=== PATIENT | female | born 1940 | race Caucasian/White ===

== ENCOUNTER 2016-11-01 08:03 | Observation (INO) ==
--- NOTE | 2016-11-01 08:13 | Emergency Department Note ---
Disposition Clinical Impression: COPD (chronic obstructive pulmonary disease) Qualifiers: COPD type: unspecified COPD Qualified Code(s): J44.9 - Chronic obstructive pulmonary disease, unspecified CHF (congestive heart failure) Qualifiers: Congestive heart failure type: unspecified congestive heart failure type Congestive heart failure chronicity: unspecified congestive heart failure chronicity Qualified Code(s): I50.9 - Heart failure, unspecified Disposition: Admitted As Inpatient Condition: Good Referrals: Mina De Oilveira MD [Primary Care Provider] - Chest Pain HPI - General Time Seen by Provider: 11/01/16 08:05 Source: patient Mode of arrival: EMS Limitations: no limitations Vital Signs Reviewed: Yes Nursing Notes Reviewed: Yes - History of Present Illness HPI Narrative: 75-year-old obese white female presents to emergency department via ambulance complaining of left sided chest pain. She says her pain started last night and continued on this morning. She describes a stabbing pain to her left lower sternum. She denies shortness of breath or nausea. She has never had a problem with her heart before. She does not smoke and does not have diabetes. She says that her father from a heart problem, but she is not sure that he had coronary artery disease or heart attack. She has taken no medicines prior to her arrival. - Related Data Home Medications Medication Instructions Recorded Confirmed Amlodipine [Norvasc] 10 mg PO DAILY 12/26/15 11/01/16 Aspirin [Adult Low Dose Aspirin EC] 81 mg PO DAILY 12/26/15 11/01/16 Budesonide/Formoterol 160/4.5 2 puff IH BID 12/26/15 11/01/16 [Symbicort 160/4.5] Furosemide [Lasix] 40 mg PO QAM 12/26/15 11/01/16 Potassium Chloride [K-Tab ER] 20 meq PO QAM 12/26/15 11/01/16 Pravastatin Sodium 10 mg PO DAILY 12/26/15 11/01/16 Alprazolam [Xanax 0.5 MG Tablet] 0.5 mg PO DAILY 07/29/16 11/01/16 Calcium Carbonate 260 mg PO TID 07/29/16 11/01/16 Fluticasone/Salmeterol [Advair 1 each IH BID 07/29/16 11/01/16 250-50 Diskus] Furosemide [Lasix] 20 mg PO QPM 07/29/16 11/01/16 Gabapentin [Neurontin] 300 mg PO TID 07/29/16 11/01/16 Ipratropium/Albuterol Sulfate 4 gm IH AD 07/29/16 11/01/16 [Combivent Respimat Inhal [place]] Polyethylene Glycol 3350 [MiraLAX] 17 gm PO DAILY 07/29/16 11/01/16 Ranitidine HCl [Zantac] 150 mg PO BID 07/29/16 11/01/16 Previous Rx's Medication Instructions Recorded Nicotine Patch [Nicoderm] 21 mg TD DAILY #30 patch.td24 05/24/16 GuaiFENesin ER [Mucinex] 600 mg PO BID 14 Days 08/05/16 HYDROcodone/Acet 5/325 mg [Kenneth 1 tab PO Q6H PRN 7 Days 08/05/16 5-325 mg] PredniSONE 20 mg PO DAILY #12 tablet 10/17/16 Allergies Allergy/AdvReac Type Severity Reaction Status Date / Time Banana Allergy See Verified 05/21/16 17:39 Comments epinephrine [From Adrenalin] Allergy Swelling Verified 05/21/16 17:39 of Lip/Tongue/Throat grass pollen Allergy See Verified 05/21/16 17:39 Comments Penicillins Allergy Swelling Verified 05/21/16 17:39 of Lip/Tongue/Throat All systems ED: reviewed and negative except as stated. Constitutional: Denies: fever, chills, weakness, weight change Eyes: Denies: eye pain, eye discharge, vision change ENT ED: Denies: ear pain, throat pain, dental pain, hearing loss, epistaxis, congestion, dysphagia Cardiovascular: Reports: as per HPI, chest pain. Denies: palpitations, dyspnea on exertion, orthopnea Respiratory: Denies: cough, dyspnea, wheezes, hemoptysis, stridor Gastrointestinal: Denies: abdominal pain, nausea, vomiting, diarrhea, constipation, hematemesis, melena, hematochezia Genitourinary: Denies: dysuria, frequency, hematuria, discharge Musculoskeletal: Denies: back pain, neck pain, arthralgia, myalgia Integumentary: Denies: rash, abrasion, lesions Neurological: Denies: headache, weakness, numbness, paresthesias, confusion, abnormal gait, vertigo Psychiatric: Denies: anxiety, depression, suicidal thoughts, homicidal thoughts , auditory hallucinations, visual hallucinations Endocrine: Denies: fatigue Hematological/Lymphatic: Denies: easy bleeding, easy bruising Allergic/Immunologic: Denies: facial swelling, urticaria Chest Pain PMH - Past Medical History Medical history: Reports: asthma, COPD, GERD, hyperlipidemia, hypertension, TIA Surgical history: Reports: hysterectomy, orthopedic, other Psychiatric history: Reports: no psych history HEEL SEAM RUBBER history: Reports: no HEEL SEAM RUBBER history - Social History Smoking Status: Current every day smoker Alcohol use: Reports: none Drug use: Reports: none Physical Exam - General Limitations: no limitations General appearance: alert, in no apparent distress - Head Head exam: atraumatic, normocephalic, normal inspection - Eye Eye exam: Present: normal appearance, PERRL, EOMI - ENT ENT exam: normal exam, normal oropharynx, mucous membranes moist - Neck Neck exam: Present: normal inspection, full ROM, trachea midline - Chest Chest inspection: Present: normal inspection, symmetric chest wall rise, tenderness, other (Palpation of her anterior chest wall revealed her chest pain) - Expanded Chest Exam Trauma: Absent: crepitus - Respiratory Respiratory exam: Present: normal lung sounds bilaterally. Absent: respiratory distress - Cardiovascular Cardiovascular exam: Present: regular rate, normal rhythm - Abdominal Exam Abdominal exam: Present: soft, Non-Tender. Absent: tenderness, distention, guarding, rebound, rigidity, organomegaly, pulsatile mass - Extremities Exam Extremities exam: Present: normal inspection, full ROM. Absent: tenderness, pedal edema - Back Exam Back exam: Present: normal inspection, full ROM. Absent: tenderness - Neurological Exam Neurological exam: Present: alert, oriented X3, CN II-XII intact. Absent: motor sensory deficit - Psychiatric Psychiatric exam: Present: normal affect, normal mood - Skin Skin exam: Present: warm, dry, intact, normal color Course Course Narrative: At the time of shift change the patient's final disposition is pending and care of this patient will be turned over to the oncoming physician. - Reevaluation(s) Reevaluation #1: Since Patient from Dr. Byrnes. Patient tells me she has had shortness of breath primarily with exertion and chest discomfort with exertion for 3 days. She describes her pain as a dull ache. She also has chronic lower extremity edema. Records show that she is on Lasix twice a day. She denies a history of CHF however. States she has been using her home nebs 3-4 times a day but symptoms persist. She saw her PCP 4 days ago and states she has 2 days left on a Z-Armin and 8 days left of steroids. She is unsure what her diagnosis was at that time. She is also seen here in the ED on October 17 for a COPD exacerbation and was placed on a course of steroids at that time as well. On my exam she still has some scattered wheezes and crackles at the bases. She has 2+ lower extremity edema. Chest pain is reproducible with palpation. Review of lab work shows no acute abnormalities. Troponin is negative. Chest x -ray however shows some vascular congestion and atelectasis. She wears 2 L of oxygen at home for several months. Oxygen saturations are in the low 90s on 2 liters at this time. Will check BNP. I suspect patient has a component of both CHF and COPD exacerbations at this time and would benefit from admission for IV diuresis and aggressive respiratory treatments. Patient is agreeable to this plan. I spoke to the hospitalist contract technician, Dr. Hahn who has accepted the patient. Time: 09:40 Vital Signs Temperature 98.7 F 11/01/16 08:10 Pulse Rate 90 11/01/16 08:10 Respiratory Rate 20 11/01/16 08:10 Blood Pressure 124/87 11/01/16 08:10 O2 Sat by Pulse Oximetry 90 L 11/01/16 08:10 Temperature 98.7 F 11/01/16 08:10 Pulse Rate 83 11/01/16 08:55 Respiratory Rate 18 11/01/16 08:55 Blood Pressure 131/96 11/01/16 08:55 O2 Sat by Pulse Oximetry 90 L 11/01/16 08:55 Oxygen Delivery Oxygen Delivery Nasal Cannula Chest Pain - Medical Records Medical records reviewed: Yes I reviewed the patient's medical records. - Lab Data Lab results reviewed: Yes I reviewed the patient's lab results. Result diagrams: 11/01/16 08:25 11/01/16 08:25 Lab Results 11/01/16 11/01/16 11/01/16 Range/Units 08:25 08:25 08:25 WBC 11.1 (4.3-11.1) K/mcL RBC 4.24 (3.82-4.97) M/mcL Hgb 12.5 (11.5-15.4) g/dL Hct 39.1 (35.3-44.9) % MCV 92.2 (83.0-100.0) fL MCH 29.5 (28.0-33.3) pg MCHC 32.0 (31.6-35.5) g/dL RDW 13.7 (11.5-14.5) % Plt Count 328 (140-400) K/mcL MPV 9.1 L (9.4-12.4) fL Immature Gran % 1.5 (0-4) % Seg Neutrophils % 69.2 % Lymphocytes % 18.8 % Monocytes % 7.0 % Eosinophils % 3.0 % Basophils % 0.5 % Neutrophils # 7.7 (1.6-8.9) K/mcL Lymphocytes # 2.1 (0.6-4.6) K/mcL Monocytes # 0.8 (0.0-1.3) K/mcL Eosinophils # 0.3 (0.0-0.6) K/mcL Basophils # 0.1 (0.0-0.2) K/mcL PT 11.4 (9.4-12.1) Seconds INR 1.1 Sodium 146 H (136-145) mEq/L Potassium 3.6 (3.5-4.5) mEq/L Chloride 106 (98-109) mEq/L Carbon Dioxide 27 (19-29) mEq/L BUN 20 (7-20) mg/dL Creatinine 0.77 (0.57-1.11) mg/dL Est GFR ( Amer) > 60 (> 60) Est GFR (Non-Af Amer) > 60 (> 60) BUN/Creatinine Ratio 26 (6-26) Glucose 91 (70-99) mg/dL Calculated Osmolality 304 H (280-300) Calcium 9.2 (8.6-10.8) mg/dL Total Bilirubin 0.4 (0.2-1.2) mg/dL AST 10 (5-34) Units/L ALT 7 (0-55) Units/L Alkaline Phosphatase 74 (38-126) Units/L Troponin I (0-0.03) ng/mL Serum Total Protein 6.4 (6.0-8.3) g/dL Albumin 3.3 L (3.5-5.0) g/dL Globulin 3.1 (2.4-3.5) g/dL Albumin/Globulin Ratio 1.1 (1.1-2.2) 11/01/16 Range/Units 08:25 WBC (4.3-11.1) K/mcL RBC (3.82-4.97) M/mcL Hgb (11.5-15.4) g/dL Hct (35.3-44.9) % MCV (83.0-100.0) fL MCH (28.0-33.3) pg MCHC (31.6-35.5) g/dL RDW (11.5-14.5) % Plt Count (140-400) K/mcL MPV (9.4-12.4) fL Immature Gran % (0-4) % Seg Neutrophils % % Lymphocytes % % Monocytes % % Eosinophils % % Basophils % % Neutrophils # (1.6-8.9) K/mcL Lymphocytes # (0.6-4.6) K/mcL Monocytes # (0.0-1.3) K/mcL Eosinophils # (0.0-0.6) K/mcL Basophils # (0.0-0.2) K/mcL PT (9.4-12.1) Seconds INR Sodium (136-145) mEq/L Potassium (3.5-4.5) mEq/L Chloride (98-109) mEq/L Carbon Dioxide (19-29) mEq/L BUN (7-20) mg/dL Creatinine (0.57-1.11) mg/dL Est GFR ( Amer) (> 60) Est GFR (Non-Af Amer) (> 60) BUN/Creatinine Ratio (6-26) Glucose (70-99) mg/dL Calculated Osmolality (280-300) Calcium (8.6-10.8) mg/dL Total Bilirubin (0.2-1.2) mg/dL AST (5-34) Units/L ALT (0-55) Units/L Alkaline Phosphatase (38-126) Units/L Troponin I 0.00 (0-0.03) ng/mL Serum Total Protein (6.0-8.3) g/dL Albumin (3.5-5.0) g/dL Globulin (2.4-3.5) g/dL Albumin/Globulin Ratio (1.1-2.2) - Radiology Data Radiology results reviewed: Yes I reviewed the patient's radiology results. ITS Impressions Chest X-Ray 11/01/16 08:15 IMPRESSION: CHF and bibasilar airspace changes that may represent atelectasis, edema or chronic interstitial change. D/ / Shant Hickman MD / Shant Hickman MD Interpreting Provider: Shant Hickman MD - EKG Data EKG attestation: Yes I reviewed and interpreted this EKG. EKG results narrative: Twelve-lead EKG shows sinus rhythm with a rate of 93, normal axis, no ST elevation or depression appreciated.
[2016-11-01] MEDS ORDERED: Aspirin 325 MG TABLET PO ONE (08:16)
[2016-11-01] MEDS ORDERED: Ondansetron 4 MG/2 ML VIAL IV ONE (08:16)
[2016-11-01] MEDS ORDERED: *HR* Morphine 2 MG/ML SYRINGE IV ONE (08:16)
[2016-11-01 08:44] LABS: Basophils # 0.1 K/mcL (0.0-0.2); Basophils % 0.5 %; Eosinophils # 0.3 K/mcL (0.0-0.6); Hematocrit 39.1 % (35.3-44.9); Hemoglobin 12.5 g/dL (11.5-15.4); Immature Granulocytes % 1.5 % (0-4); Lymphocytes # 2.1 K/mcL (0.6-4.6); Lymphocytes % 18.8 %; Mean Corpuscular Hemoglobin 29.5 pg (28.0-33.3); Mean Corpuscular Volume 92.2 fL (83.0-100.0); Mean Platelet Volume 9.1 fL (9.4-12.4); Monocytes # 0.8 K/mcL (0.0-1.3); Neutrophils # 7.7 K/mcL (1.6-8.9); Platelet Count 328 K/mcL (140-400); Red Blood Count 4.24 M/mcL (3.82-4.97); Red Cell Distribution Width 13.7 % (11.5-14.5); Segmented Neutrophils % 69.2 %
[2016-11-01 08:45] LABS: INR 1.1; Prothrombin Time 11.4 Seconds (9.4-12.1)
[2016-11-01 08:46] LABS: Alanine Aminotransferase 7 Units/L (0-55); Albumin 3.3 g/dL (3.5-5.0); Albumin/Globulin Ratio 1.1 (1.1-2.2); Alkaline Phosphatase 74 Units/L (38-126); Aspartate Amino Transferase 10 Units/L (5-34); BUN/Creatinine Ratio 26 (6-26); Bilirubin,Total 0.4 mg/dL (0.2-1.2); Blood Urea Nitrogen 20 mg/dL (7-20); Calcium 9.2 mg/dL (8.6-10.8); Carbon Dioxide 27 mEq/L (19-29); Chloride 106 mEq/L (98-109); Globulin 3.1 g/dL (2.4-3.5); Glucose 91 mg/dL (70-99); Osmolality,Calculated 304 (280-300); Potassium 3.6 mEq/L (3.5-4.5); Sodium 146 mEq/L (136-145); Total Protein 6.4 g/dL (6.0-8.3); eGFR For African Americans > 60 (> 60); eGFR For Non-African Americans > 60 (> 60)
[2016-11-01] MEDS ORDERED: Furosemide 40 MG/4 ML VIAL IVP ONE (09:33)
[2016-11-01] MEDS ORDERED: Naloxone 0.4 MG/ML INJ IVP PRN ×2 (09:53→10:37)
[2016-11-01] MEDS ORDERED: Ipratropium/Albuterol Neb 3 ML ONE (11:02)
[2016-11-01] MEDS: (Ipratropium/Albuterol Sulfate [Combivent Respimat In) IH SCH (11:10)
--- NOTE | 2016-11-01 11:50 | Internal Med History&Physical ---
Date of Encounter: 11/01/16 Time of Encounter: 11:47 Internal Medicine - H&P: HPI Admitted From: Emergency Dept Plans for Post Hospital Care: Home History of present illness: Ms. Mancera is a 75 year old female Past Med Surg Social Fam HX - Past Medical History Medical history: asthma, COPD, GERD, hyperlipidemia, hypertension, TIA Psychiatric history: no psych history - Past Surgical History Surgical History: knee replacement - Social History Smoking Status: Former smoker Smokeless Tobacco Status: No Alcohol use: none Drug use: none - Family History Father Living Status: Mother Living Status: Internal Medicine - H&P: Meds Amlodipine [Norvasc] 10 mg PO DAILY 12/26/15 [History] Aspirin [Adult Low Dose Aspirin EC] 81 mg PO DAILY 12/26/15 [History] Furosemide [Lasix] 40 mg PO QAM 12/26/15 [History] Potassium Chloride [K-Tab ER] 20 meq PO QAM 12/26/15 [History] Pravastatin Sodium 10 mg PO DAILY 12/26/15 [History] Nicotine Patch [Nicoderm] 21 mg TD DAILY #30 patch.td24 05/24/16 [Rx] Alprazolam [Xanax 0.5 MG Tablet] 0.5 mg PO DAILY 07/29/16 [History] Calcium Carbonate 260 mg PO TID 07/29/16 [History] Furosemide [Lasix] 20 mg PO QPM 07/29/16 [History] Gabapentin [Neurontin] 300 mg PO TID 07/29/16 [History] Ipratropium/Albuterol Sulfate [Combivent Respimat Inhal [place]] 4 gm IH AD [History] Polyethylene Glycol 3350 [MiraLAX] 17 gm PO DAILY 07/29/16 [History] Ranitidine HCl [Zantac] 150 mg PO BID 07/29/16 [History] GuaiFENesin ER [Mucinex] 600 mg PO BID 14 Days 08/05/16 [Rx] HYDROcodone/Acet 5/325 mg [[place] 5-325 mg] 1 tab PO Q6H PRN 7 Days 08/05/16 [Rx] PredniSONE 20 mg PO DAILY #12 tablet 10/17/16 [Rx] Allergies Banana Allergy (Verified 05/21/16 17:39) See Comments epinephrine [From Adrenalin] Allergy (Verified 05/21/16 17:39) Swelling of Lip/Tongue/Throat grass pollen Allergy (Verified 05/21/16 17:39) See Comments Penicillins Allergy (Verified 05/21/16 17:39) Swelling of Lip/Tongue/Throat All Systems PM: A 10-system review of systems was performed and is negative for pertinent findings except as documented above in the HPI. - Constitutional Vitals: Temp Pulse Resp BP Pulse Ox 98.1 F 88 20 131/87 91 L 11/01/16 10:23 11/01/16 10:23 11/01/16 10:23 11/01/16 10:23 11/01/16 10:23 - Head Head exam: Present: atraumatic, normal inspection, normocephalic - Neck Neck exam general surgery: Present: supple, trachea midline. Absent: lymphadenopathy Internal Med - H&P Results - Labs CBC & Chem 7: 11/01/16 08:25 11/01/16 08:25 - VTE Reasons for not Prescribing Prophylaxis: Treatment not Indicated - Low risk for VTE
--- NOTE | 2016-11-01 16:03 | Electrocardiograph Report ---
[address] [address] Test Date: 2016-11-01 Pat Name: Delisa Mancera Department: 2000 Room: 112 Gender: F Metal Furniture Assembler: : 1940 Requested By: Eusebio Byrnes Order Number: [id number] Reading MD: Shea Fenton Measurements Intervals [place] Rate: 93 P: 59 ID: [id number] QRS: -22 QRSD: 100 T: 36 QT: 380 QTc: 430 Interpretive Statements SINUS RHYTHM BORDERLINE LEFT AXIS DEVIATION LOW QRS VOLTAGE IN PRECORDIAL LEADS INCOMPLETE RIGHT BUNDLE BRANCH BLOCK Electronically Signed On 11-01-2016 16:01:36 EST by Shea Fenton
--- NOTE | 2016-11-01 16:06 | ECHO - Doppler Report ---
Echocardiogram Name: Delisa Mancera Date of Study: 11/01/2016 Date: 1940 Ht: 63.0 in Medical Record#: [id number] Age: 75 Wt: 226.0 lb Gender: Female BSA: 2.04 Order #: [id number] Location: [facility] Room #: 112A Reading Physician: Contsantin Coronado DO, MANUEL, CHUCHO CAI Senior Wind Energy Consultant: Pam Galvez RVT, [facility] Ordering Physician: Mina Hahn DO Primary Physician: None Indications: Congestive heart failure Impressions: Technically sub-optimal due to poor echocardiographic windows. LVEF 70%. Normal LV chamber size and function. Mild concentric left ventricular hypertrophy. Mild left ventricular diastolic dysfunction. Atypical septal motion of unclear etiology. Right ventricle was not well visualized. Grossly, it appears normal in function. Mild aortic regurgitation. No evidence of pulmonary hypertension. Left Ventricular Wall Motion: Rest Echo Findings All wall segments showed normal motion. Findings: Study Quality * Technically sub-optimal due to poor echocardiographic windows. ECG Findings * Normal sinus rhythm. Left Ventricle * LVEF 70%. * Normal LV chamber size and function. * Mild concentric left ventricular hypertrophy. * Mild left ventricular diastolic dysfunction. * Atypical septal motion of unclear etiology. Right Ventricle * Right ventricle was not well visualized. Grossly, it appears normal in function. Left Atrium * Grossly, normal left atrial size. Right Atrium * Grossly, normal right atrial size. Aortic Valve * Aortic valve not well visualized. * Grossly, the aortic valve appears sclerotic in some views. * Mild aortic regurgitation. * No aortic stenosis. Mitral Valve * Mildly thickened mitral valve leaflets. * No mitral regurgitation. * No mitral stenosis. Tricuspid Valve * Normal tricuspid valve structure and function. * Trace tricuspid regurgitation. * No evidence of pulmonary hypertension. Pulmonic Valve * Pulmonic valve not well visualized. Aorta * Normally sized aortic root. Pericardium * The pericardium appears normal. IVC * Normal IVC dimensions and inspiratory collapse. Pulmonary Artery * Pulmonary artery not well visualized. History Hypertension Family History of CAD Measurements: BP: 134/ 70 2D Normal Values RVIDd: 2.90 cm <2.7 cm IVSd: 1.20 cm 0.6 - 1.0 cm LVIDd: 4.80 cm 3.7 - 5.6 cm LVPWd: 1.10 cm 0.6 - 1.1 cm LVIDs: 3.60 cm 1.5 - 3.6 cm AO: 2.50 cm < 4.0 cm LA: 3.50 cm 2.0 - 4.0cm %FS: 25.00 cm >25 % LA volume: 20.7 Mitral Valve Dec Time:218.00 msec Peak E:.90 m/sec Peak A:1.21 m/sec E/A Ratio:0.7 Peak E' Lat Bennett:8.19 cm/s Peak E' Med Bennett:7.19 cm/s E/E' Lat Ratio:11 E/E' Med Ratio:12.5 Aortic Valve AI pressure Half-time: 389.00 msec Tricuspid Valve TV Regurg Peak Grad: 26.00mmHg TV Regurg Peak Bennett: 2.56m/sec Updated by Constantin Coronado DO, FACJosé Miguel, TRELL, CHUCHO on 11/01/2016 4:00:28 PM electronically signed on 11/01/2016 4:00:50 PM with status of Final Wall Motion [place]: 1=Normal, 2=Hypokinesis, 3=Akinesis, 4=Dyskinesis, 5=Aneurysmal, 6=Hyperkinetic, X=Not Visualized (Blank)=Missing
[2016-11-01] MEDS: Gabapentin 300 MG CAPSULE PO SCH ×2 (17:31→23:18)
[2016-11-01] MEDS: *HR* HYDROcodone/Acet 5/325 mg TABLET PO PRN (20:23)
[2016-11-01] MEDS ORDERED: NON-FORMULARY MEDICATION 1 EACH EACH (Fluticasone/Salmeterol [Advair 250-50 Diskus] 1 EACH IH SCH (21:00)
[2016-11-01] MEDS: Furosemide 40 MG/4 ML VIAL IVP SCH (23:17)
[2016-11-01] MEDS: Famotidine 20 MG TABLET PO SCH (23:18)
[2016-11-01] MEDS: Budesonide/Formoterol 160/4.5 MDI IH SCH (23:19)
[2016-11-02] MEDS: *HR* HYDROcodone/Acet 5/325 mg TABLET PO PRN ×2 (05:14→13:22)
[2016-11-02 05:51] LABS: Basophils # 0.1 K/mcL (0.0-0.2); Basophils % 0.8 %; Eosinophils # 0.7 K/mcL (0.0-0.6); Eosinophils % 7.3 %; Hematocrit 38.9 % (35.3-44.9); Hemoglobin 12.2 g/dL (11.5-15.4); Immature Granulocytes % 0.8 % (0-4); Lymphocytes # 1.9 K/mcL (0.6-4.6); Lymphocytes % 20.1 %; Mean Corpuscular HGB Conc 31.4 g/dL (31.6-35.5); Mean Corpuscular Hemoglobin 28.9 pg (28.0-33.3); Mean Corpuscular Volume 92.2 fL (83.0-100.0); Mean Platelet Volume 9.2 fL (9.4-12.4); Monocytes # 0.8 K/mcL (0.0-1.3); Monocytes % 8.3 %; Platelet Count 291 K/mcL (140-400); Red Blood Count 4.22 M/mcL (3.82-4.97); Red Cell Distribution Width 13.6 % (11.5-14.5); Segmented Neutrophils % 62.7 %
[2016-11-02 06:06] LABS: BUN/Creatinine Ratio 25 (6-26); Blood Urea Nitrogen 20 mg/dL (7-20); Calcium 8.8 mg/dL (8.6-10.8); Carbon Dioxide 31 mEq/L (19-29); Chloride 101 mEq/L (98-109); Glucose 90 mg/dL (70-99); Osmolality,Calculated 298 (280-300); Potassium 3.6 mEq/L (3.5-4.5); Sodium 143 mEq/L (136-145); eGFR For African Americans > 60 (> 60); eGFR For Non-African Americans > 60 (> 60)
[2016-11-02 07:05] VITALS: BP 112/60
[2016-11-02] MEDS: Furosemide 40 MG/4 ML VIAL IVP SCH (08:32)
[2016-11-02] MEDS: Gabapentin 300 MG CAPSULE PO SCH (08:34)
[2016-11-02] MEDS: Famotidine 20 MG TABLET PO SCH (08:34)
[2016-11-02] MEDS ORDERED: PredniSONE 20 MG TABLET PO SCH (09:00)
[2016-11-02] MEDS ORDERED: Azithromycin 250 MG TABLET PO SCH (09:00)
[2016-11-02] MEDS ORDERED: Aspirin Enteric Coated 81 MG Tablet PO SCH (09:00)
[2016-11-02] MEDS ORDERED: Nicotine 21 MG PATCH.TD24 TD SCH (09:00)
[2016-11-02] MEDS: Budesonide/Formoterol 160/4.5 MDI IH SCH (10:03)
[2016-11-02] MEDS: (Ipratropium/Albuterol Sulfate [Combivent Respimat In) IH SCH (10:04)
--- NOTE | 2016-11-02 13:27 | Discharge Summary ---
Date of Encounter: 11/02/16 Time of Encounter: 13:24 - Discharge Diagnosis (1) COPD (chronic obstructive pulmonary disease) Priority: Primary Status: Acute Qualifiers: COPD type: unspecified COPD Qualified Code(s): J44.9 - Chronic obstructive pulmonary disease, unspecified - Discharge Medications Home Medications: Amlodipine [Norvasc] 10 mg PO DAILY 12/26/15 [History] Aspirin [Adult Low Dose Aspirin EC] 81 mg PO DAILY 12/26/15 [History] Furosemide [Lasix] 40 mg PO QAM 12/26/15 [History] Potassium Chloride [K-Tab ER] 20 meq PO QAM 12/26/15 [History] Pravastatin Sodium 10 mg PO DAILY 12/26/15 [History] Nicotine Patch [Nicoderm] 21 mg TD DAILY #30 patch.td24 05/24/16 [Rx] Alprazolam [Xanax 0.5 MG Tablet] 0.5 mg PO DAILY 07/29/16 [History] Calcium Carbonate 260 mg PO TID 07/29/16 [History] Furosemide [Lasix] 20 mg PO QPM 07/29/16 [History] Gabapentin [Neurontin] 300 mg PO TID 07/29/16 [History] Ipratropium/Albuterol Sulfate [Combivent Respimat Inhal [place]] 4 gm IH AD [History] Polyethylene Glycol 3350 [MiraLAX] 17 gm PO DAILY 07/29/16 [History] Ranitidine HCl [Zantac] 150 mg PO BID 07/29/16 [History] GuaiFENesin ER [Mucinex] 600 mg PO BID 14 Days 08/05/16 [Rx] HYDROcodone/Acet 5/325 mg [[place]ia 5-325 mg] 1 tab PO Q6H PRN 7 Days 08/05/16 [Rx] PredniSONE 20 mg PO DAILY #12 tablet 10/17/16 [Rx] Azithromycin [Zithromax] 250 mg PO DAILY tablet 11/02/16 [Rx] Budesonide/Formoterol 160/4.5 [Symbicort 160/4.5] 2 puff IH BIDR inhaler [Rx] Furosemide [Lasix] 40 mg IVP BID vial 11/02/16 [Rx] Ipratropium/Albuterol Neb [Duoneb] 3 ml .ROUTE .STK-MED inhsol 11/02/16 [Rx] Quetiapine Fumarate [Seroquel] 100 mg PO HS tablet 11/02/16 [Rx] Allergies/Adverse Reactions: Allergies Banana Allergy (Verified 05/21/16 17:39) See Comments epinephrine [From Adrenalin] Allergy (Verified 05/21/16 17:39) Swelling of Lip/Tongue/Throat grass pollen Allergy (Verified 05/21/16 17:39) See Comments Penicillins Allergy (Verified 05/21/16 17:39) Swelling of Lip/Tongue/Throat Procedures/tests Complete & Pending: Procedures Performed prior 72 hours Category Date Time Status EV echocardiogram Routine Y 11/01/16 14:10 Completed Date of admission: 11/01/16 09:53 Primary care physician: Mina De Oliveira MD Anticipated date of discharge: 11/02/16 - Patient Status Disposition: Home, Self-Care Condition: Good Functional capacity at discharge: independent ambulation Overall status at discharge: patient is back to baseline - Discharge Instructions Instructions: Chronic Obstructive Pulmonary Disease (DC) Forms: ED Satisfaction Letter - Diet and Activity Activity: increase activity as tolerated Diet: advance to your usual diet Hospital course: Ms. Mancera is a 75 year old female admitted to the ED 2 days ago for COPD exacerbation. This examination, she feels much better and wants to go home. She has antibiotics, prednisone and inhalers at home. - Time Spent with Patient Total time spent providing and/or coordinating discharge services: - Constitutional Vitals: Temp Pulse Resp BP Pulse Ox 98.8 F 80 18 112/60 92 L 11/02/16 07:03 11/02/16 07:03 11/02/16 07:03 11/02/16 07:03 11/02/16 07:03 General appearance: Present: A&O X 3, pleasant, no acute distress - Respiratory Respiratory exam: Present: CTAB. Absent: accessory muscle use, rales, rhonchi, wheezes - Cardiovascular Cardiovascular exam: Present: RRR, +S1, +S2. Absent: diastolic murmur, gallop, rubs, systolic murmur - GI/Abdominal GI/Abdominal exam: Present: normal bowel sounds, soft, no peritoneal signs. Absent: distended, tenderness - Extremities Exam Extremities exam: Present: warm, radial pulses palpable and symetrical. Absent : calf tenderness, cyanotic, pedal edema - Neurological Exam Neurological exam: Present: CN II-XII intact, oriented X3, no focal deficits. Absent: pronater drift, facial droop, speech deficit - VTE Reasons for not Prescribing Prophylaxis: Treatment not Indicated - Low risk for VTE
== END 2016-11-02 15:29 | disposition home or self-care (01) ==
LOC: EMEROOGRE 08:03 → INPGRE 08:03
PROVIDERS: ADMIT Student in an Organized Health Care Education/Training Program; ATTEND Internal Medicine

== ENCOUNTER 2017-07-21 08:15 | Inpatient (IN) ==
[2017-07-21] MEDS ORDERED: Ipratropium/Albuterol Neb 3 ML IH ONE ×2 (09:24→09:27)
--- NOTE | 2017-07-21 09:40 | Emergency Department Note ---
Disposition Clinical Impression: COPD (chronic obstructive pulmonary disease) Disposition: Admitted As Inpatient Condition: Fair Time of Disposition: 10:26 SOB HPI - General Chief Complaint: ED Shortness of Breath/Dyspnea Stated Complaint: difficulty breathing Time Seen by Provider: 07/21/17 09:13 Source: patient, family ([id number]) Limitations: altered mental status Nursing Notes Reviewed: Yes Vital Signs Reviewed: Yes - History of Present Illness Ms. Mancera was brought to the emergency department today because of difficulty breathing. Per nurse's notes 72% room air. She has been wearing home oxygen at 2 L for several months now. She stopped smoking 8 months ago and has a diagnosis of COPD. She has also had some dementia. Her [id number] accompanies her here to the emergency department today and has not seen her for a week but tells me that she is much more confused than usual. Mr. Mancera is a very poor historian and is not sure about a lot of the questions on review of systems such as history of a fall and possible head trauma with are not she has been coughing fever or chills. She does deny any nausea vomiting diarrhea or chest pain. She has been a bit more short of breath today. She also tells me that she has been more confused lately and fearful that somebody might be trying to get into her apartment. She typically is able to ambulate to toilet however last couple of days because of the fear of being pursued she has not gotten up. Pt Subjective Complaint: shortness of breath - Related Data Home Medications Medication Instructions Recorded Confirmed Aspirin [Adult Low Dose Aspirin EC] 81 mg PO DAILY 12/26/15 07/21/17 Furosemide [Lasix] 40 mg PO QAM 12/26/15 07/21/17 Potassium Chloride [K-Tab ER] 20 meq PO BID 12/26/15 07/21/17 Pravastatin Sodium 10 mg PO DAILY 12/26/15 07/21/17 amLODIPine [Norvasc] 5 mg PO DAILY 12/26/15 07/21/17 Furosemide [Lasix] 20 mg PO QPM 07/29/16 07/21/17 Gabapentin [Neurontin] 300 mg PO TID 07/29/16 07/21/17 Ipratropium/Albuterol Sulfate 4 gm IH QID 07/29/16 07/21/17 [Combivent Respimat Inhal [place]] Polyethylene Glycol 3350 [MiraLAX] 17 gm PO DAILY 07/29/16 07/21/17 Ranitidine HCl [Zantac] 150 mg PO BID 07/29/16 07/21/17 Albuterol Sulfate [Ventolin Hfa] 108 mcg IH Q6HR PRN 07/15/17 07/21/17 Azelastine HCl [Astepro] 205.5 mcg NS BID 07/15/17 07/21/17 Bisacodyl [Woman's Laxative] 5 mg PO DAILY PRN 07/15/17 07/21/17 Buspirone HCl [Buspar] 5 mg PO DAILY 07/15/17 07/21/17 Calcium Carbonate/Vitamin D3 1 each PO TID 07/15/17 07/21/17 [Oyster Shell Calcium-Vit D Tab] Cyanocobalamin (Vitamin B-12) 1,000 mcg PO DAILY 07/15/17 07/21/17 [Vitamin B12] Docusate [Colace] 100 mg PO BID 07/15/17 07/21/17 Escitalopram [Lexapro] 20 mg PO DAILY 07/15/17 07/21/17 Fluticasone/Salmeterol [Advair 1 each IH BID 07/15/17 07/21/17 250-50 Diskus] Fluticasone/Salmeterol [Advair 2 each IH BID 07/15/17 07/21/17 500-50 Diskus] Fluticasone/Vilanterol [Breo 1 each IH DAILY 07/15/17 07/21/17 Ellipta 100-25 Mcg INH] HYDROcodone/Acet 5/325 mg [[place] 1 tab PO Q6H PRN 07/15/17 07/21/17 5-325 mg] Ipratropium/Albuterol Sulfate 4 gm IH QID PRN 07/15/17 07/21/17 [Combivent Respimat Inhal [place]] LORazepam [Ativan] 1 mg PO BID 07/15/17 07/21/17 Loratadine [Allergy Relief] 10 mg PO DAILY 07/15/17 07/21/17 Losartan Potassium [Cozaar] 25 mg PO DAILY 07/15/17 07/21/17 Omeprazole [PriLOSEC] 20 mg PO DAILY 07/15/17 07/21/17 Ondansetron HCl [Zofran] 4 mg PO Q6HR PRN 07/15/17 07/21/17 Quetiapine Fumarate [Seroquel] 50 mg PO HS 07/15/17 07/21/17 Previous Rx's Medication Instructions Recorded Fluconazole [Diflucan] 150 mg PO ONCE #1 tab 07/17/17 Allergies Allergy/AdvReac Type Severity Reaction Status Date / Time Banana Allergy See Verified 01/27/17 18:49 Comments epinephrine [From Adrenalin] Allergy Swelling Verified 01/27/17 18:49 of Lip/Tongue/Throat grass pollen Allergy See Verified 01/27/17 18:49 Comments Penicillins Allergy Swelling Verified 01/27/17 18:49 of Lip/Tongue/Throat Limitations: ROS unobtainable due to patients medical condition Cardiovascular: Denies: chest pain Gastrointestinal: Denies: abdominal pain, nausea, vomiting, diarrhea Genitourinary: Denies: urgency, dysuria, frequency Psychiatric: Reports: other (Confusion as per history of present illness) Past Medical History - Past Medical History Medical history: Reports: asthma, COPD, GERD, hyperlipidemia, hypertension, TIA Surgical history: Reports: knee replacement Psychiatric history: Reports: no psych history RECEPTIONIST NURSE history: Reports: no RECEPTIONIST NURSE history - Social History Smoking Status: Former smoker Smokeless Tobacco Status: No Alcohol use: Reports: none Drug use: Reports: none Physical Exam - General Limitations: no limitations General appearance: alert, in no apparent distress - Head Head exam: atraumatic, normocephalic, other (Negative raccoon eyes negative Haley sign) - Eye Eye exam: Present: normal appearance - ENT ENT exam: normal exam, mucous membranes dry, TM's normal bilaterally - Neck Neck exam: Present: normal inspection. Absent: lymphadenopathy - Chest Chest inspection: Present: normal inspection, symmetric chest wall rise. Absent : tenderness - Respiratory Respiratory exam: Present: wheezes (Inspiratory expiratory wheezes with fair air exchange.). Absent: respiratory distress - Cardiovascular Cardiovascular exam: Present: regular rate, normal rhythm, normal heart sounds. Absent: systolic murmur, diastolic murmur - Abdominal Exam Abdominal exam: Present: soft, Non-Tender - Extremities Exam Extremities exam: Present: pedal edema (Trace ankle edema with mild erythema pretibial. No pain to palpation.) - Neurological Exam Neurological exam: Present: alert, oriented X3 - Psychiatric Psychiatric exam: Present: anxious - Skin Skin exam: Absent: intact (Bilateral intertriginous areas groin macerrated erythematous breakdown of skin) Course Vital Signs Temperature 98.2 F 07/21/17 08:21 Pulse Rate 84 07/21/17 08:21 Respiratory Rate 20 07/21/17 08:21 Blood Pressure 120/65 07/21/17 08:21 O2 Sat by Pulse Oximetry 97 07/21/17 08:21 Temperature 98.2 F 07/21/17 08:21 Pulse Rate 84 07/21/17 08:21 Respiratory Rate 20 07/21/17 08:21 Blood Pressure 120/65 07/21/17 08:21 O2 Sat by Pulse Oximetry 90 07/21/17 10:25 Oxygen Delivery Oxygen Delivery Nasal Cannula Shortness of Breath/Dyspnea - [facility] Narrative Medical decision making narrative: COPD exacerbation. Repeat lung exam after 2 DuoNeb just demonstrated the disappearance of the wheezing. She is oxygenating well. Acute confusion on underlying dementia. It does not appear as though she is safe to discharge home where she lives alone even though she does have supportive family members. I spoke with the covering hospitalist here at [facility] presented the case. He accepted admission. He is able to write orders. Perineal wound. A Gallardo catheter was placed to divert urine away from the wound site. She is known to the wound service here at [facility] and has had one consultation just a few days ago. We will continue treatment here at [facility]. At the time of this dictation she is awake alert and in no visible distress awaiting transfer to the floor. - Medical Records Medical records reviewed: Yes I reviewed the patient's medical records. - Lab Data Lab results reviewed: Yes I reviewed the patient's lab results. Result diagrams: 07/21/17 09:35 07/21/17 09:35 Lab Results 07/21/17 07/21/17 07/21/17 Range/Units 09:35 09:35 09:35 WBC 11.1 (4.3-11.1) K/mcL RBC 3.69 L (3.82-4.97) M/mcL Hgb 11.1 L (11.5-15.4) g/dL Hct 35.6 (35.3-44.9) % MCV 96.5 (83.0-100.0) fL MCH 30.1 (28.0-33.3) pg MCHC 31.2 L (31.6-35.5) g/dL RDW 13.3 (11.5-14.5) % Plt Count 301 (140-400) K/mcL MPV 9.9 (9.4-12.4) fL Immature Gran % 0.5 (0-4) % Seg Neutrophils % 76.6 % Lymphocytes % 10.8 % Monocytes % 6.5 % Eosinophils % 5.0 % Basophils % 0.6 % Neutrophils # 8.5 (1.6-8.9) K/mcL Lymphocytes # 1.2 (0.6-4.6) K/mcL Monocytes # 0.7 (0.0-1.3) K/mcL Eosinophils # 0.6 (0.0-0.6) K/mcL Basophils # 0.1 (0.0-0.2) K/mcL Sodium 143 (136-145) mEq/L Potassium 3.5 (3.5-4.5) mEq/L Chloride 96 L (98-109) mEq/L Carbon Dioxide 36 H (19-29) mEq/L BUN 12 (7-20) mg/dL Creatinine 0.80 (0.57-1.11) mg/dL Est GFR ( Amer) > 60 (> 60) Est GFR (Non-Af Amer) > 60 (> 60) BUN/Creatinine Ratio 15 (6-26) Glucose 110 H (70-99) mg/dL Calculated Osmolality 296 (280-300) Calcium 8.9 (8.6-10.8) mg/dL Phosphorus 2.7 (2.3-4.7) mg/dL Magnesium 2.0 (1.6-2.6) mg/dL Total Bilirubin 0.4 (0.2-1.2) mg/dL AST 13 (5-34) Units/L ALT 12 (0-55) Units/L Alkaline Phosphatase 85 (38-126) Units/L Troponin I (0-0.03) ng/mL B-Natriuretic Peptide (0-100) pg/mL Serum Total Protein 6.4 (6.0-8.3) g/dL Albumin 3.3 L (3.5-5.0) g/dL Globulin 3.1 (2.4-3.5) g/dL Albumin/Globulin Ratio 1.1 (1.1-2.2) 07/21/17 07/21/17 Range/Units 09:35 09:35 WBC (4.3-11.1) K/mcL RBC (3.82-4.97) M/mcL Hgb (11.5-15.4) g/dL Hct (35.3-44.9) % MCV (83.0-100.0) fL MCH (28.0-33.3) pg MCHC (31.6-35.5) g/dL RDW (11.5-14.5) % Plt Count (140-400) K/mcL MPV (9.4-12.4) fL Immature Gran % (0-4) % Seg Neutrophils % % Lymphocytes % % Monocytes % % Eosinophils % % Basophils % % Neutrophils # (1.6-8.9) K/mcL Lymphocytes # (0.6-4.6) K/mcL Monocytes # (0.0-1.3) K/mcL Eosinophils # (0.0-0.6) K/mcL Basophils # (0.0-0.2) K/mcL Sodium (136-145) mEq/L Potassium (3.5-4.5) mEq/L Chloride (98-109) mEq/L Carbon Dioxide (19-29) mEq/L BUN (7-20) mg/dL Creatinine (0.57-1.11) mg/dL Est GFR ( Amer) (> 60) Est GFR (Non-Af Amer) (> 60) BUN/Creatinine Ratio (6-26) Glucose (70-99) mg/dL Calculated Osmolality (280-300) Calcium (8.6-10.8) mg/dL Phosphorus (2.3-4.7) mg/dL Magnesium (1.6-2.6) mg/dL Total Bilirubin (0.2-1.2) mg/dL AST (5-34) Units/L ALT (0-55) Units/L Alkaline Phosphatase (38-126) Units/L Troponin I 0.01 (0-0.03) ng/mL B-Natriuretic Peptide 201 H (0-100) pg/mL Serum Total Protein (6.0-8.3) g/dL Albumin (3.5-5.0) g/dL Globulin (2.4-3.5) g/dL Albumin/Globulin Ratio (1.1-2.2) - Radiology Data Radiology results reviewed: Yes I reviewed the patient's radiology results. - EKG Data EKG attestation: Yes I reviewed and interpreted this EKG. EKG results narrative: EKG as interpreted by me normal sinus rhythm 84 bpm T-wave inversions in lead 3. T-wave flattening in aVF. Left axis deviation. Right bundle branch block. No ST elevations or depressions. No significant changes from May 2017.
[2017-07-21 09:46] LABS: Basophils # 0.1 K/mcL (0.0-0.2); Basophils % 0.6 %; Eosinophils # 0.6 K/mcL (0.0-0.6); Hematocrit 35.6 % (35.3-44.9); Hemoglobin 11.1 g/dL (11.5-15.4); Immature Granulocytes % 0.5 % (0-4); Lymphocytes # 1.2 K/mcL (0.6-4.6); Lymphocytes % 10.8 %; Mean Corpuscular HGB Conc 31.2 g/dL (31.6-35.5); Mean Corpuscular Hemoglobin 30.1 pg (28.0-33.3); Mean Corpuscular Volume 96.5 fL (83.0-100.0); Mean Platelet Volume 9.9 fL (9.4-12.4); Monocytes # 0.7 K/mcL (0.0-1.3); Monocytes % 6.5 %; Neutrophils # 8.5 K/mcL (1.6-8.9); Platelet Count 301 K/mcL (140-400); Red Blood Count 3.69 M/mcL (3.82-4.97); Red Cell Distribution Width 13.3 % (11.5-14.5); Segmented Neutrophils % 76.6 %
[2017-07-21] MEDS ORDERED: 0.9 % Sodium Chloride 500 ML IVC ONE (09:51)
[2017-07-21 09:55] LABS: Phosphorous 2.7 mg/dL (2.3-4.7)
[2017-07-21 09:57] LABS: Alanine Aminotransferase 12 Units/L (0-55); Albumin 3.3 g/dL (3.5-5.0); Albumin/Globulin Ratio 1.1 (1.1-2.2); Alkaline Phosphatase 85 Units/L (38-126); Aspartate Amino Transferase 13 Units/L (5-34); BUN/Creatinine Ratio 15 (6-26); Bilirubin,Total 0.4 mg/dL (0.2-1.2); Blood Urea Nitrogen 12 mg/dL (7-20); Calcium 8.9 mg/dL (8.6-10.8); Carbon Dioxide 36 mEq/L (19-29); Chloride 96 mEq/L (98-109); Globulin 3.1 g/dL (2.4-3.5); Glucose 110 mg/dL (70-99); Osmolality,Calculated 296 (280-300); Potassium 3.5 mEq/L (3.5-4.5); Sodium 143 mEq/L (136-145); Total Protein 6.4 g/dL (6.0-8.3); eGFR For African Americans > 60 (> 60); eGFR For Non-African Americans > 60 (> 60)
--- NOTE | 2017-07-21 15:14 | Electrocardiograph Report ---
[place] [id number] Test Date: 2017-07-21 Pat Name: Delisa Mancera Department: 2000 Room: 116 Gender: F Railroad Operating Engineer: : [id number] Requested By: Jermain Correia Order Number: [id number] Reading MD: Deonte Oh MD Measurements Intervals [place] Rate: 84 P: 63 MD: 161 QRS: -35 QRSD: 102 T: -4 QT: 408 QTc: 449 Interpretive Statements SINUS RHYTHM MARKED LEFT AXIS DEVIATION INCOMPLETE RIGHT BUNDLE BRANCH BLOCK Electronically Signed On 07-21-2017 15:13:18 EST by Deonte Oh MD
--- NOTE | 2017-07-21 15:32 | Internal Med History&Physical ---
Date of Encounter: 07/22/17 Time of Encounter: 15:30 Assessment and Plan (1) COPD (chronic obstructive pulmonary disease) Current visit: Yes Status: Acute Patient has recently quit smoking and has breathing difficulties and is on O2 now her sats were very low this morning Qualifiers: Qualified Code(s): J43.9 - Emphysema, unspecified (2) Acute and chronic respiratory failure with hypoxia Current visit: No Status: Acute By history she does decompensate and has desaturations. (3) Acute exacerbation of chronic obstructive airways disease Current visit: No Status: Acute He has acute and chronic exacerbation (4) Acute metabolic encephalopathy Current visit: No Status: Acute Family reports she does have mild dementia but it is much worse and she is confabulating right now (5) Altered mental status Current visit: No Status: Acute Patient had an increase in her confusion according to her family Qualifiers: Altered mental status type: unspecified Qualified Code(s): R41.82 - Altered mental status, unspecified (6) Candidal intertrigo Current visit: No Status: Acute This is due to sitting in wet urine and not being change properly Dry wound cares on the case (7) Dermatitis associated with incontinence Current visit: No Status: Acute She has been sitting apparently in wet pull-ups. Skin is broken down and she is already seeing wound care and continue the treatment here. They placed a Gallardo and I am sending a specimen for UA. As she was being treated with Cipro for previous possible UTI. We will follow along. Internal Medicine - H&P: HPI Chief complaint: Patient was brought into the emergency room by her family because she was m Admitted From: Emergency Dept Plans for Post Hospital Care: Home History of present illness: Ms. Mancera is a 76 year old female Apparently the family says the last couple days her dementias gotten worse she has had to see wound care for skin breakdown on her bottom and was more short of breath. Apparently in the emergency room her sats were very low Past Med Surg Social Fam HX - Past Medical History Medical history: asthma, COPD, dementia, GERD, hyperlipidemia, hypertension, TIA Psychiatric history: no psych history - Past Surgical History Surgical History: knee replacement - Social History Smoking Status: Former smoker Smokeless Tobacco Status: No Alcohol use: none Drug use: none - Family History Father Living Status: Mother Living Status: Internal Medicine - H&P: Meds Aspirin [Adult Low Dose Aspirin EC] 81 mg PO DAILY 12/26/15 [History] Potassium Chloride [K-Tab ER] 20 meq PO BID 12/26/15 [History] Pravastatin Sodium 10 mg PO DAILY 12/26/15 [History] Gabapentin [Neurontin] 300 mg PO BID 07/29/16 [History] Ranitidine HCl [Zantac] 150 mg PO BID 07/29/16 [History] Buspirone HCl [Buspar] 15 mg PO TID 07/15/17 [History] Escitalopram [Lexapro] 20 mg PO DAILY 07/15/17 [History] HYDROcodone/Acet 5/325 mg [[place] 5-325 mg] 1 tab PO Q6H PRN 07/15/17 [History] LORazepam [Ativan] 1 mg PO BID 07/15/17 [History] Loratadine [Allergy Relief] 10 mg PO DAILY 07/15/17 [History] Losartan Potassium [Cozaar] 25 mg PO DAILY 07/15/17 [History] Omeprazole [PriLOSEC] 20 mg PO DAILY 07/15/17 [History] Quetiapine Fumarate [Seroquel] 50 mg PO HS 07/15/17 [History] Ciprofloxacin [Cipro] 500 mg PO BID 07/21/17 [History] Fluticasone/Salmeterol [Advair 250-50 Diskus] 1 each IH BID 07/21/17 [History] Furosemide [Lasix] 40 mg PO HS 07/21/17 [History] Furosemide [Lasix] 80 mg PO 0900 07/21/17 [History] Gabapentin [Neurontin] 600 mg PO HS 07/21/17 [History] Ipratropium/Albuterol Sulfate [Combivent Respimat Inhal [place]] 4 gm IH QID PRN 07/21/17 [History] Memantine HCl 5 mg PO BID 07/21/17 [History] Metoprolol [Lopressor] 12.5 mg PO BID 07/21/17 [History] traZODone [TraZODone] 100 mg PO HS 07/21/17 [History] 3 Allergy/AdvReac Type Severity Reaction Status Date / Time Banana Allergy See Verified 07/21/17 12:24 Comments epinephrine [From Adrenalin] Allergy Swelling Verified 07/21/17 12:24 of Lip/Tongue/Throat grass pollen Allergy See Verified 07/21/17 12:24 Comments Penicillins Allergy Swelling Verified 07/21/17 12:24 of Lip/Tongue/Throat All Systems PM: A 10-system review of systems was performed and is negative for pertinent findings except as documented above in the HPI. - Constitutional Constitutional: no anorexia, no excessive sweating, no fatigue, no fever(s), no falls, no lethargy, no malaise, no night sweats, no weakness, no weight gain, no weight loss - EENT Eyes: no blurry vision, no change in vision, no decreased night vision, no diplopia, no discharge, no dry eye, no floaters, no irritation, no itchy eyes, no loss of peripheral vision, no loss of vision, no pain, no photophobia, no tunnel vision, no other visual disturbances Ears: no ear discharge, no tinnitus Nose, mouth and throat: no facial pain, no hoarseness, no nose pain - Breasts Breasts: no change in shape, no mass, no pain, no nipple discharge, no skin changes, no swelling, no other - Cardiovascular Cardiovascular ROS IM: dyspnea on exertion, edema, no chest pain, no claudication, no diaphoresis, no dyspnea, no irregular heart rhythm, no lightheadedness, no orthopnea, no palpitations, no paroxysmal nocturnal dyspnea , no syncope - Respiratory Respiratory: dyspnea on exertion, no cough, no wheezing, no snoring, no stridor , no pain on inspiration, no chest congestion, no excessive phlegm production, no change in phlegm color, no pain with cough - Gastrointestinal Gastrointestinal: no abdominal pain, no belching, no bloating, no change in bowel habits, no change in stool character, no coffee ground emesis, no constipation, no cramping, no diarrhea, no dyspepsia, no excessive flatus, no fecal incontinence, no heartburn, no hematemesis, no hematochezia, no loose stools, no melena, no nausea, no odynophagia, no tenesmus, no vomiting - Genitourinary Additional comments: N/A Additional comments: N/A - Musculoskeletal Musculoskeletal ROS IM: no arthralgias, no atrophy, no back pain, no deformity, no joint swelling, no limited range of motion, no muscle cramps, no muscle weakness, no myalgias, no neck pain, no numbness, no stiffness, no tingling - Integumentary Integumentary IM: erythema, new lesions, rash, skin ulcer, no unusual bruising, no jaundice - Neurological Neurological ROS: confusion, memory loss, no abnormal gait, no abnormal hearing , no abnormal movements, no abnormal speech, no behavioral changes, no burning sensations, no convulsions, no disequilibrium, no dizziness, no focal weakness, no frequent falls, no headache(s), no lack of coordination, no loss of vision, no numbness, no paresthesias, no radicular pain, no restless legs, no tingling, no tremor(s), no vertigo, no weakness, no other visual disturbances - Psychiatric Psychiatric: abnormal sleep pattern, anxiety, auditory hallucinations, behavioral changes, confusion, difficulty concentrating, hallucinations, paranoia, visual hallucinations, no depression, no mood swings, no panic attacks - Endocrine Endocrine IM: no cold intolerance, no deeping of the voice, no excessive sweating, no fatigue, no flushing, no heat intolerance, no polydipsia, no polyphagia, no polyuria - Allergic/Immunologic Allergic/Immunologic: no tongue swelling, no throat swelling, no itchy eyes, no seasonal rhinorrhea, no uticaria, no wheezing, no GI upset with certain foods, no lip swelling - Constitutional Vitals: Temp Pulse Resp BP Pulse Ox 97.9 F 94 18 132/71 90 07/21/17 13:40 07/21/17 13:40 07/21/17 13:40 07/21/17 13:40 07/21/17 13:40 - Head Head exam: Present: atraumatic, normal inspection, normocephalic - Neck Neck exam general surgery: Present: supple, trachea midline. Absent: lymphadenopathy - Respiratory Respiratory exam: Present: decreased breath sounds, CTAB, prolonged expiratory phase. Absent: accessory muscle use, rales, rhonchi, wheezes Additional comments: Minimal wheezing but she is moving air better color is good her sats are in the 90s and she is wearing O2. She did take it off earlier stating that the oxygen makes her short of breath. And we have talked with her encouraged her to please leave her on her nasal cannula - Cardiovascular Cardiovascular exam: Present: RRR, +S1, +S2. Absent: diastolic murmur, gallop, rubs, systolic murmur - GI/Abdominal GI/Abdominal exam: Present: normal bowel sounds, soft, no peritoneal signs. Absent: distended, tenderness Internal Med - H&P Results - Labs CBC & Chem 7: 07/21/17 09:35 07/21/17 09:35 Labs: Lab appears stable
[2017-07-21 15:33] LABS: Thyroid Stimulating Hormone 0.669 mcIU/mL (0.350-4.840)
[2017-07-21] MEDS ORDERED: Ipratropium/Albuterol Neb 3 ML IH PRN (17:00)
[2017-07-21] MEDS ORDERED: Enoxaparin Weight Dosing SQ SCH (18:00)
[2017-07-21] MEDS: Gabapentin 300 MG CAPSULE PO SCH ×2 (18:08→21:43)
[2017-07-21] MEDS: traZODone 50 MG TABLET PO SCH (21:44)
[2017-07-21] MEDS: Furosemide 40 MG TABLET PO SCH (21:47)
[2017-07-21] MEDS: Budesonide/Formoterol 80/4.5 MDI IH SCH (22:49)
[2017-07-22] MEDS: *HR* Enoxaparin 40 MG/0.4 ML SYRINGE SQ SCH (06:08)
[2017-07-22] MEDS: *HR* HYDROcodone/Acet 5/325 mg TABLET PO PRN ×2 (06:14→11:54)
[2017-07-22] MEDS: Furosemide 40 MG TABLET PO SCH ×2 (09:16→23:29)
[2017-07-22] MEDS: Aspirin Enteric Coated 81 MG Tablet PO SCH (09:16)
[2017-07-22] MEDS: Gabapentin 300 MG CAPSULE PO SCH ×3 (09:16→23:30)
[2017-07-22] MEDS: Budesonide/Formoterol 80/4.5 MDI IH SCH ×2 (09:22→23:30)
[2017-07-22 09:23] LABS: Bilirubin,Urine Small (Negative); Blood,Urine Moderate (Negative); Clarity,Urine Clear (Clear); Color,Urine Yellow (Yellow); Glucose,Urine (UA) Normal (Normal); Ketones,Urine Negative (Negative); Leukocyte Esterase,Urine Negative (Negative); Nitrite,Urine Negative (Negative); Protein,Urine 30 mg/dL (Neg-Trace); Specific Gravity,Urine 1.025 (1.010-1.025); Urobilinogen,Urine Normal (Normal)
[2017-07-22 10:07] LABS: Squamous Epithelial Cell,Urine Few per lpf (None-Few)
[2017-07-22 10:08] LABS: Bacteria,Urine Moderate per hpf (None-Few); Hyaline Casts,Urine Moderate per lpf (None-Few); Mucus,Urine Few (Few)
[2017-07-22] MEDS ORDERED: Acetaminophen 325 MG TABLET PO PRN (13:19)
--- NOTE | 2017-07-22 15:36 | Internal Med Progress Note ---
Date of Encounter: 07/22/17 Time of Encounter: 15:34 - Assessment and plan (1) COPD (chronic obstructive pulmonary disease) Current Visit: Yes Status: Acute Assessment and plan: COPD seems settled down. No wheezing today breathing easily and tolerating her nasal cannula. Qualifiers: Qualified Code(s): J43.9 - Emphysema, unspecified (2) Acute and chronic respiratory failure with hypoxia Current Visit: No Status: Acute Assessment and plan: Not currently a problem (3) Acute exacerbation of chronic obstructive airways disease Current Visit: No Status: Acute Assessment and plan: I think were with exacerbation (4) Acute metabolic encephalopathy Current Visit: No Status: Acute Assessment and plan: Even this seems improved (5) Altered mental status Current Visit: No Status: Acute Assessment and plan: Patient does have mild dementia but seems back to baseline at this point Qualifiers: Altered mental status type: unspecified Qualified Code(s): R41.82 - Altered mental status, unspecified (6) Candidal intertrigo Current Visit: No Status: Acute Assessment and plan: Skin issues are still being addressed the wound care still seeing her for her bottom (7) Dermatitis associated with incontinence Current Visit: No Status: Acute Assessment and plan: Again were following this with wound care keep it dry and leave the Gallardo in for couple days - Time Spent With Patient less than 15 minutes - Subjective Interval history: smiling, resting easily. - Constitutional Vitals: Temp Pulse Resp BP Pulse Ox 98.6 F 73 18 100/65 93 07/22/17 11:45 07/22/17 11:45 07/22/17 11:45 07/22/17 11:45 07/22/17 11:45 - Head Head exam: Present: atraumatic, normocephalic - Neck Neck exam general surgery: Present: supple, trachea midline. Absent: lymphadenopathy - Respiratory Respiratory exam: Present: decreased breath sounds, CTAB, prolonged expiratory phase. Absent: accessory muscle use, rales, rhonchi, wheezes Additional comments: All wheezes have responded to therapy and are absent - Cardiovascular Cardiovascular exam: Present: RRR, +S1, +S2. Absent: diastolic murmur, gallop, rubs, systolic murmur Internal Medicine: Result - Labs CBC & Chem 7: 07/21/17 09:35 07/21/17 09:35 Labs: Urine 07/22/17 Range/Units 09:10 Urine Color Yellow (Yellow) Urine Clarity Clear (Clear) Urine pH 6.0 (5.0-8.0) pH Units Ur Specific [place] 1.025 (1.010-1.025) Urine Protein 30 H (Neg-Trace) mg/dL Urine Glucose (UA) Normal (Normal) mg/dL Labs stable . Consult Discharge Plan - Plan Referrals: Galina Zavala CNP [Primary Care Provider] -
[2017-07-22] MEDS: Mag Hydrox/Al Hydrox/Simeth 30 ML UDC PO PRN (18:58)
[2017-07-22] MEDS: traZODone 50 MG TABLET PO SCH (23:30)
[2017-07-23] MEDS: Mag Hydrox/Al Hydrox/Simeth 30 ML UDC PO PRN (00:38)
[2017-07-23] MEDS: *HR* Enoxaparin 40 MG/0.4 ML SYRINGE SQ SCH (06:22)
[2017-07-23] MEDS: *HR* HYDROcodone/Acet 5/325 mg TABLET PO PRN ×3 (06:23→17:01)
[2017-07-23] MEDS: Aspirin Enteric Coated 81 MG Tablet PO SCH (08:43)
[2017-07-23] MEDS: Furosemide 40 MG TABLET PO SCH ×2 (08:43→21:02)
[2017-07-23] MEDS: Gabapentin 300 MG CAPSULE PO SCH ×3 (08:44→20:58)
[2017-07-23] MEDS: Budesonide/Formoterol 80/4.5 MDI IH SCH ×2 (09:18→21:14)
[2017-07-23] MEDS: traZODone 50 MG TABLET PO SCH (20:59)
[2017-07-24] MEDS: *HR* HYDROcodone/Acet 5/325 mg TABLET PO PRN ×4 (06:22→22:16)
[2017-07-24] MEDS: *HR* Enoxaparin 40 MG/0.4 ML SYRINGE SQ SCH (06:24)
[2017-07-24] MEDS: Aspirin Enteric Coated 81 MG Tablet PO SCH (08:01)
[2017-07-24] MEDS: Furosemide 40 MG TABLET PO SCH ×2 (08:01→22:09)
[2017-07-24] MEDS: Gabapentin 300 MG CAPSULE PO SCH ×3 (08:02→22:10)
[2017-07-24] MEDS: Budesonide/Formoterol 80/4.5 MDI IH SCH ×2 (10:58→22:20)
--- NOTE | 2017-07-24 13:31 | Discharge Summary ---
Date of Encounter: 07/24/17 Time of Encounter: 13:29 - Discharge Diagnosis (1) COPD (chronic obstructive pulmonary disease) Priority: Primary Status: Acute Qualifiers: Qualified Code(s): J43.9 - Emphysema, unspecified (2) Acute and chronic respiratory failure with hypoxia Priority: Primary Status: Acute (3) Acute exacerbation of chronic obstructive airways disease Priority: Primary Status: Acute (4) Acute metabolic encephalopathy Priority: Secondary Status: Acute (5) Altered mental status Priority: Secondary Status: Acute Qualifiers: Altered mental status type: unspecified Qualified Code(s): R41.82 - Altered mental status, unspecified (6) Candidal intertrigo Priority: Primary Status: Acute (7) Dermatitis associated with incontinence Priority: Primary Status: Acute - Discharge Medications Home Medications: Aspirin [Adult Low Dose Aspirin EC] 81 mg PO DAILY 12/26/15 [History] Potassium Chloride [K-Tab ER] 20 meq PO BID 12/26/15 [History] Pravastatin Sodium 10 mg PO DAILY 12/26/15 [History] Gabapentin [Neurontin] 300 mg PO BID 07/29/16 [History] Ranitidine HCl [Zantac] 150 mg PO BID 07/29/16 [History] Buspirone HCl [Buspar] 15 mg PO TID 07/15/17 [History] Escitalopram [Lexapro] 20 mg PO DAILY 07/15/17 [History] HYDROcodone/Acet 5/325 mg [[place] 5-325 mg] 1 tab PO Q6H PRN 07/15/17 [History] LORazepam [Ativan] 1 mg PO BID 07/15/17 [History] Loratadine [Allergy Relief] 10 mg PO DAILY 07/15/17 [History] Losartan Potassium [Cozaar] 25 mg PO DAILY 07/15/17 [History] Omeprazole [PriLOSEC] 20 mg PO DAILY 07/15/17 [History] Quetiapine Fumarate [Seroquel] 50 mg PO HS 07/15/17 [History] Ciprofloxacin [Cipro] 500 mg PO BID 07/21/17 [History] Fluticasone/Salmeterol [Advair 250-50 Diskus] 1 each IH BID 07/21/17 [History] Furosemide [Lasix] 40 mg PO HS 07/21/17 [History] Furosemide [Lasix] 80 mg PO 0900 07/21/17 [History] Gabapentin [Neurontin] 600 mg PO HS 07/21/17 [History] Ipratropium/Albuterol Sulfate [Combivent Respimat Inhal [place]] 4 gm IH QID PRN 07/21/17 [History] Memantine HCl 5 mg PO BID 07/21/17 [History] Metoprolol [Lopressor] 12.5 mg PO BID 07/21/17 [History] traZODone [TraZODone] 100 mg PO HS 07/21/17 [History] Allergies/Adverse Reactions: 3 Allergy/AdvReac Type Severity Reaction Status Date / Time Banana Allergy See Verified 07/21/17 12:24 Comments epinephrine [From Adrenalin] Allergy Swelling Verified 07/21/17 12:24 of Lip/Tongue/Throat grass pollen Allergy See Verified 07/21/17 12:24 Comments Penicillins Allergy Swelling Verified 07/21/17 12:24 of Lip/Tongue/Throat Date of admission: 07/22/17 13:22 Primary care physician: Galina Zavala CNP Discharging clinician: Mina Hahn Anticipated date of discharge: 07/24/17 - Patient Status Disposition: Home Health Service Condition: Fair Functional capacity at discharge: bed bound Overall status at discharge: patient is not back to baseline - Discharge Instructions Follow Up With: Galina Zavala CNP [Primary Care Provider] - - Diet and Activity Activity: as per physical therapy Diet: diabetic diet Interval History: Ms. Mancera was admitted from the emergency room due to some encephalopathy. Low oxygen saturations wheezing shortness of breath. And she also had some skin break down the buttocks from sitting in wet diapers and urine. Hospital course: Ms. Mancera is a 76 year old female Patient was brought to the floor where a Gallardo was placed she had aggressive treatment of her pulmonary congestion is resolved. Buttock skin his much improved from the leave the Gallardo for several days so she can stay dry - Time Spent with Patient Total time spent providing and/or coordinating discharge services: Less than 30 minutes - Constitutional Vitals: Temp Pulse Resp BP Pulse Ox 98.6 F 73 20 96/60 92 07/24/17 11:39 07/24/17 11:39 07/24/17 11:39 07/24/17 11:39 07/24/17 11:39 - Head Head exam: Present: atraumatic, normal inspection, normocephalic - Neck Neck exam general surgery: Present: supple, trachea midline. Absent: lymphadenopathy - Respiratory Respiratory exam: Present: decreased breath sounds, CTAB, prolonged expiratory phase. Absent: accessory muscle use, rales, rhonchi, wheezes - Cardiovascular Cardiovascular exam: Present: RRR, +S1, +S2. Absent: diastolic murmur, gallop, rubs, systolic murmur - GI/Abdominal GI/Abdominal exam: Present: normal bowel sounds, soft, no peritoneal signs. Absent: distended, tenderness
--- NOTE | 2017-07-24 13:35 | Physician Discharge Referral ---
Home Health/Hosp Referral Info Transfer to: Home Health Provider in Charge Post Discharge: PCP - Diagnosis (1) COPD (chronic obstructive pulmonary disease) Status: Acute (2) Acute and chronic respiratory failure with hypoxia Priority: Primary Status: Acute (3) Acute exacerbation of chronic obstructive airways disease Priority: Primary Status: Acute (4) Acute metabolic encephalopathy Priority: Primary Status: Acute (5) Altered mental status Priority: Secondary Status: Acute (6) Candidal intertrigo Priority: Secondary Status: Acute (7) Dermatitis associated with incontinence Priority: Primary Status: Acute - Respiratory Orders Oxygen / L per min Smoking Cessation: Smoking cessation has been advised. For more information, call the [place] Tobacco Quit Line at 3-154-XFKQ-NOW. - Dressing/Wound Care Site: I will get checked the bodyaches once a week please - Diet/Nutrition Diet/Nutrition Orders: No Concentrated Sweets - Activity Activity Orders: Bedrest - Services Needed Following services are medically necessary services: Nursing, Physical Therapy Home Care Orders: DC the [facility] in 5 days - Transfer Medications Home Medications: Aspirin [Adult Low Dose Aspirin EC] 81 mg PO DAILY 12/26/15 [History] Potassium Chloride [K-Tab ER] 20 meq PO BID 12/26/15 [History] Pravastatin Sodium 10 mg PO DAILY 12/26/15 [History] Gabapentin [Neurontin] 300 mg PO BID 07/29/16 [History] Ranitidine HCl [Zantac] 150 mg PO BID 07/29/16 [History] Buspirone HCl [Buspar] 15 mg PO TID 07/15/17 [History] Escitalopram [Lexapro] 20 mg PO DAILY 07/15/17 [History] HYDROcodone/Acet 5/325 mg [[place] 5-325 mg] 1 tab PO Q6H PRN 07/15/17 [History] LORazepam [Ativan] 1 mg PO BID 07/15/17 [History] Loratadine [Allergy Relief] 10 mg PO DAILY 07/15/17 [History] Losartan Potassium [Cozaar] 25 mg PO DAILY 07/15/17 [History] Omeprazole [PriLOSEC] 20 mg PO DAILY 07/15/17 [History] Quetiapine Fumarate [Seroquel] 50 mg PO HS 07/15/17 [History] Ciprofloxacin [Cipro] 500 mg PO BID 07/21/17 [History] Fluticasone/Salmeterol [Advair 250-50 Diskus] 1 each IH BID 07/21/17 [History] Furosemide [Lasix] 40 mg PO HS 07/21/17 [History] Furosemide [Lasix] 80 mg PO 0900 07/21/17 [History] Gabapentin [Neurontin] 600 mg PO HS 07/21/17 [History] Ipratropium/Albuterol Sulfate [Combivent Respimat Inhal [place]] 4 gm IH QID PRN 07/21/17 [History] Memantine HCl 5 mg PO BID 07/21/17 [History] Metoprolol [Lopressor] 12.5 mg PO BID 07/21/17 [History] traZODone [TraZODone] 100 mg PO HS 07/21/17 [History] Allergies/Adverse Reactions: 3 Allergy/AdvReac Type Severity Reaction Status Date / Time Banana Allergy See Verified 07/21/17 12:24 Comments epinephrine [From Adrenalin] Allergy Swelling Verified 07/21/17 12:24 of Lip/Tongue/Throat grass pollen Allergy See Verified 07/21/17 12:24 Comments Penicillins Allergy Swelling Verified 07/21/17 12:24 of Lip/Tongue/Throat Certification: Further, I certify that my clinical findings support that this patient is homebound (i.e. absences from home require considerable and taxing effort and are for medical reasons or sikh services or infrequently or short duration when for other reasons) because: Homebound Reason: Patient requires assistance of a person or device to safely leave home Attestation: My signature below is to certify that this patient is under my care and that I, or nurse practitioner, or a physician's electrician's assistant working with me, has a face-to -face encounter with this patient.
[2017-07-24] MEDS ORDERED: FLUARIX QUAD 2017-18 36MOS UP/PF 0.5 ML SYRINGE IM ONE (15:01)
[2017-07-24] MEDS: traZODone 50 MG TABLET PO SCH (22:11)
[2017-07-25] MEDS: *HR* Enoxaparin 40 MG/0.4 ML SYRINGE SQ SCH (05:37)
[2017-07-25] MEDS: *HR* HYDROcodone/Acet 5/325 mg TABLET PO PRN ×2 (05:42→16:12)
[2017-07-25] MEDS: Furosemide 40 MG TABLET PO SCH (09:36)
[2017-07-25] MEDS: Gabapentin 300 MG CAPSULE PO SCH ×2 (09:38→16:12)
[2017-07-25] MEDS: Budesonide/Formoterol 80/4.5 MDI IH SCH (09:38)
[2017-07-25] MEDS: Aspirin Enteric Coated 81 MG Tablet PO SCH (09:38)
--- NOTE | 2017-07-25 11:24 | Physician Discharge Referral ---
ExtendedCare Referral Info Transfer To: [facility] Provider in Charge after Transfer: PCP Institutional Level of Care: Skilled - Diagnosis (1) COPD (chronic obstructive pulmonary disease) Priority: Primary Status: Acute (2) Acute and chronic respiratory failure with hypoxia Priority: Primary Status: Acute (3) Acute exacerbation of chronic obstructive airways disease Priority: Primary Status: Acute (4) Acute metabolic encephalopathy Priority: Primary Status: Acute (5) Altered mental status Priority: Primary Status: Acute (6) Candidal intertrigo Priority: Secondary Status: Acute (7) Dermatitis associated with incontinence Priority: Secondary Status: Acute Prognosis: Fair Aware of Diagnosis: Patient, Family Aware of Prognosis: Patient, Family - Transfer Medications Home Medications: Aspirin [Adult Low Dose Aspirin EC] 81 mg PO DAILY 12/26/15 [History] Potassium Chloride [K-Tab ER] 20 meq PO BID 12/26/15 [History] Pravastatin Sodium 10 mg PO DAILY 12/26/15 [History] Gabapentin [Neurontin] 300 mg PO BID 07/29/16 [History] Ranitidine HCl [Zantac] 150 mg PO BID 07/29/16 [History] Buspirone HCl [Buspar] 15 mg PO TID 07/15/17 [History] Escitalopram [Lexapro] 20 mg PO DAILY 07/15/17 [History] HYDROcodone/Acet 5/325 mg [[place] 5-325 mg] 1 tab PO Q6H PRN 07/15/17 [History] LORazepam [Ativan] 1 mg PO BID 07/15/17 [History] Loratadine [Allergy Relief] 10 mg PO DAILY 07/15/17 [History] Losartan Potassium [Cozaar] 25 mg PO DAILY 07/15/17 [History] Omeprazole [PriLOSEC] 20 mg PO DAILY 07/15/17 [History] Quetiapine Fumarate [Seroquel] 50 mg PO HS 07/15/17 [History] Ciprofloxacin [Cipro] 500 mg PO BID 07/21/17 [History] Fluticasone/Salmeterol [Advair 250-50 Diskus] 1 each IH BID 07/21/17 [History] Furosemide [Lasix] 40 mg PO HS 07/21/17 [History] Furosemide [Lasix] 80 mg PO 0900 07/21/17 [History] Gabapentin [Neurontin] 600 mg PO HS 07/21/17 [History] Ipratropium/Albuterol Sulfate [Combivent Respimat Inhal [place]] 4 gm IH QID PRN 07/21/17 [History] Memantine HCl 5 mg PO BID 07/21/17 [History] Metoprolol [Lopressor] 12.5 mg PO BID 07/21/17 [History] traZODone [TraZODone] 100 mg PO HS 07/21/17 [History] Allergies/Adverse Reactions: 3 Allergy/AdvReac Type Severity Reaction Status Date / Time Banana Allergy See Verified 07/21/17 12:24 Comments epinephrine [From Adrenalin] Allergy Swelling Verified 07/21/17 12:24 of Lip/Tongue/Throat grass pollen Allergy See Verified 07/21/17 12:24 Comments Penicillins Allergy Swelling Verified 07/21/17 12:24 of Lip/Tongue/Throat - Respiratory Orders Smoking Cessation: Smoking cessation has been advised. For more information, call the [place] Tobacco Quit Line at 1-202-NSFB-NOW. - Ancillary Orders May use pressure relief devices daily prn - Advance Directives Code Status: Full Code - Mobility Orders Ambulate - Rehabiliation Orders Rehab Potential: Fair Rehab Orders: Evaluation for Physical Therapy, Evaluation for Occupational Therapy - Treatments Skin tear care topically daily PRN per policy, May check for fecal impaction rectally daily PRN, Fleet enema rectally every other day PRN cleansing purposes - Diet Orders No Concentrated Sweets (D/C carmichael in 5 days) CERTIFICATION: I certify that the transfer of the above named patient to an Extended Care Facility is necessary for the continuing treatment of the diagnosis listed. The above information is true and accurate reflection of patient's current condition. Confidential - Redisclosure prohibited without a patient's written consent.
[2017-07-25 12:35] VITALS: BP 104/71
== END 2017-07-25 16:49 | DRG 189 ==
LOC: EMEROOGRE 08:15 → INPGRE 08:15
PROVIDERS: ADMIT Internal Medicine; ATTEND Internal Medicine